=== PATIENT | female | born 1975 | race Caucasian/White ===

== ENCOUNTER 2021-04-16 08:12 | Emergency (ER) | payer BC, MEDICAID ==
[2021-04-16] MEDS ORDERED: Sodium Chloride 0.9% 10 ML Syringe FLUSH PRN (08:26)
[2021-04-16] MEDS ORDERED: MVI, Adult with Vitamin K 10 ML, Thiamine 100 MG, Folic Acid 1 MG in Lactated Ringers 1... IV ONE ×4 (08:27)
[2021-04-16 08:47] LABS: AMPHETAMINES,URINE NEGATIVE (NEGATIVE); BARBITURATES,URINE NEGATIVE (NEGATIVE); BENZODIAZEPINE,URINE NEGATIVE (NEGATIVE); MDMA (ECSTASY), URINE NEGATIVE (NEGATIVE); METHADONE,URINE NEGATIVE (NEGATIVE); METHAMPHETAMINES,URINE NEGATIVE (NEGATIVE); OPIATES,URINE NEGATIVE (NEGATIVE); OXYCODONE,URINE NEGATIVE (NEGATIVE); PHENCYCLIDINE,URINE NEGATIVE (NEGATIVE); TCA,URINE NEGATIVE (NEGATIVE)
[2021-04-16 09:03] LABS: ANION GAP 13.6 mEq/L (7-13)
[2021-04-16 09:42] LABS: CHLORIDE,CL 99 mmol/L (98-107); SODIUM,NA 132 mmol/L (136-145)
[2021-04-16 10:08] LABS: RESPIRATORY SYNCYTIAL VIR NAA NEGATIVE (NEGATIVE)
[2021-04-16 10:10] LABS: CORONAVIRUS COVID-19 NAA POSITIVE (NEGATIVE)
== END 2021-04-16 10:30 | disposition home or self-care (01) ==
LOC: DL.ED 08:12
DX: U07.1 COVID-19 (principal); F10.10 Alcohol abuse, uncomplicated; E83.42 Hypomagnesemia; Z88.2 Allergy status to sulfonamides; Z88.1 Allergy status to other antibiotic agents; Z20.822 Contact with and (suspected) exposure to COVID-19; Y90.0 Blood alcohol level of less than 20 mg/100 ml
CPT/HCPCS: 0241U; 36415; 80053; 80305-QW; 80307; 81001; 81025; 82150; 83690; 83735; 84443; 85025; 87086; 93010; 96365; 99284; 99285-25; J3411; J3490; J7120

== ENCOUNTER 2022-05-11 00:34 | Emergency (ER) | payer BC, MEDICAID ==
[2022-05-11] MEDS ORDERED: Sodium Chloride 0.9% 1,000 ML IV ONE (01:24)
[2022-05-11] MEDS ORDERED: Ondansetron 4 MG/2 ML SDV IVPUSH ONE (01:24)
[2022-05-11 02:02] LABS: ANION GAP 14.3 mEq/L (7-13)
[2022-05-11] MEDS ORDERED: Ketorolac 30 MG/ML SDV IVPUSH ONE (03:26)
[2022-05-11] MEDS ORDERED: Ciprofloxacin 500 MG Tab PO ONE (05:50)
[2022-05-11] MEDS ORDERED: Phenazopyridine 95 MG Tab PO ONE (05:52)
[2022-05-11] MEDS ORDERED: Phenazopyridine 95 MG Tab ONE (06:00)
== END 2022-05-11 06:10 | disposition home or self-care (01) ==
LOC: DL.ED 00:34
DX: N30.01 Acute cystitis with hematuria (principal); F17.210 Nicotine dependence, cigarettes, uncomplicated; Z91.048 Other nonmedicinal substance allergy status; Z88.1 Allergy status to other antibiotic agents; Z88.2 Allergy status to sulfonamides
CPT/HCPCS: 36415; 74176; 80053; 81001; 82150; 83690; 85025; 87086; 87088; 87186; 96361; 96374; 96375; 99284; A9270; J1885; J2405; J7030

== ENCOUNTER 2023-07-27 17:25 | Emergency (ER) | payer MEDICAID, OTHER ==
[2023-07-27] MEDS ORDERED: Lidocaine 1% with EPINEPHrine 1:100,000 20 ML MDV ONE (17:57)
[2023-07-27] MEDS: Bacitracin Oint 1 GM U/D Packet TOP ONE (18:00)
[2023-07-27] MEDS: Lidocaine 1% with EPINEPHrine 1:100,000 20 ML MDV INJECT ONE (18:00)
== END 2023-07-27 18:33 | disposition home or self-care (01) ==
LOC: DL.ED 17:25
DX: S71.112A Laceration without foreign body, left thigh, initial encounter (principal); S93.402A Sprain of unspecified ligament of left ankle, initial encounter; Z91.048 Other nonmedicinal substance allergy status; Z88.1 Allergy status to other antibiotic agents; Z88.2 Allergy status to sulfonamides; W11.XXXA Fall on and from ladder, initial encounter
CPT/HCPCS: 12001; 73610; 99283; A9270; 99282; J3490